=== PATIENT | female | born 1975 | race Caucasian/White ===

== ENCOUNTER → 2016-10-25 | Outpatient (CLI) | payer OTHER ==
--- NOTE | 2016-10-25 18:56 | Diagnostic Imaging Report ---
Bilateral diagnostic mammogram. INDICATION: Bilateral breast lumps. No prior studies are available. The current study was also evaluated with a Computer Aided Detection (CAD) system. FINDINGS: The breasts are composed of heterogeneously dense parenchyma which may decrease mammographic sensitivity. There is no mass, architectural distortion or suspicious cluster of calcification seen. Benign-appearing calcifications are noted. Allowing for technique and positional differences, no suspicious change is seen. IMPRESSION: Dense breasts with no definite change. ACR BI-RADS Category 2: Benign findings. Result letter will be mailed to the patient. Note: At least 10% of breast cancer is not imaged by mammography. Dictated by: Dictated on workstation # [id number]
--- NOTE | 2016-10-25 19:23 | Diagnostic Imaging Report ---
Left breast ultrasound. INDICATION: Palpable lumps. Dense breasts. FINDINGS: The breast parenchyma appears unremarkable in the four quadrants and retroareolar region with no underlying abnormality seen. IMPRESSION: Negative study. Clinical follow-up of the palpable area is recommended. ACR BI-RADS Category 1: Negative. Dictated by: Dictated on workstation # [id number]
== END ==
LOC: RAD 08:33
PROVIDERS: ATTEND Nurse Practitioner Family
DX: N60.12 Diffuse cystic mastopathy of left breast (principal)
CPT/HCPCS: 77066